=== PATIENT | male | born 1950 | race Caucasian/White ===

== ENCOUNTER 2024-03-05 14:15 | Emergency (ER) | payer OTHER ==
--- OUTSIDE RECORDS SUMMARY | 2024-03-05 14:18 | XMS REPORT | Continuity of Care Document ---
Author Name Unknown Address [address] [facility] [address] [place] [address] [facility] Address [address] [facility] [place] [address] Care Team Providers Care Clinical Dietician Name Role Phone ERICKSON_R Attending Clinician Unavailable Ruthann-Mbayo_A_AH Attending Clinician Unavailable ERICKSON_R Admitting Clinician Unavailable Ruthann-Mbayo_A_AH Admitting Clinician Unavailable Payers Payer Name Policy Type Policy Number Effective Date Expirati on Date Source [employer] (MEDICARE REPLACEMENT PPO) [id number] 2020 00:00:00 [facility] YONI CORONADO (MEDICARE REPLACEMENT/[employer] GE - HMO) [id number] 2019 00:00:00 Encounters Start Date/Time End Date/Time Encounter Type Admission Type Attending Clinicians Care Facility Care Department Encounter ID Source 2021-10-07 03:14:00 2021-10-07 03:14:00 Outpatient ERICKSON_R [facility] [id number] [facility] 2021-10-04 04:53:00 2021-10-04 04:53:00 Outpatient ERICKSON_R [facility] [id number] [facility] 2021-05-16 05:51:00 2021-05-16 05:51:00 Outpatient Ruthann-Mbayo _A_AH V[facility] VFP [id number] [facility] 2020-01-07 07:26:00 2020-01-07 07:26:00 Outpatient Ruthann-Mbayo _A_AH VFP VFP [id number] [facility] 2020-01-07 07:26:00 2020-01-07 07:26:00 Outpatient Ruthann-Kalie _A_AH VFP VFP [id number] [facility]
[2024-03-05] MEDS ORDERED: MORPHINE 4 MG/ML SYR ONE (14:32)
[2024-03-05] MEDS ORDERED: ONDANSETRON 4 MG/2 ML VIAL ONE (14:32)
[2024-03-05 14:50] LABS: Absolute Basophils 0.1 K/uL (0-0.5); Absolute Lymphocytes (CBC) 0.8 K/uL (0.7-4.9); Absolute Monocytes 0.5 K/uL (0.1-1.3); Absolute Neutrophil 6.7 K/uL (1.8-8.0); Basophils % 0.7 % (0-1.3); Eosinophils % 0.2 % (0-4.4); Hematocrit 46.4 % (39.6-49.0); Hemoglobin 15.5 g/dL (13.6-17.9); Lymphocytes % 10.4 % (15.3-44.8); MCH 29.4 pg (27.0-35.0); MCHC 33.3 g/dL (32.0-36.0); MCV 88.3 fL (80-100); MPV 8.6 fL (7.6-11.3); Monocytes % 5.9 % (3.3-12.3); Neutrophils % 82.8 % (41.7-73.7); Nucleated Red Blood Cells % 0.3 % (0-0); Platelets 205 thou/uL (152-406); RBC Red Blood Cell Count 5.26 M/uL (4.33-5.43); Red Cell Distribution Width 13.7 % (12.1-15.2)
--- NOTE | 2024-03-05 15:02 | RAD REPORT ---
EXAM DESCRIPTION: RAD - Hip Left 2 View - 03/05/2024 2:57 pm CLINICAL HISTORY: PAIN COMPARISON: No comparisons FINDINGS: No evidence of acute fracture, dislocation or AVN.
--- NOTE | 2024-03-05 15:19 | EDPHYS ---
Physician Documentation [facility] Name: Ben Munoz Age: 73 yrs Sex: Male : 1950 Arrival Date: 03/05/2024 Time: 14:15 Bed 18 Private MD: ED Physician Chuck Stoll HPI: 03/05 14:43 This 73 yrs old Male presents to ER via EMS with complaints of Leg Pain. kb 14:43 Pt is a 73 year old male who presents for left low back/upper buttock pain that started kb yesterday. States pain radiates down left leg and he has been getting muscle cramps. Spoke with Dr Pradhan and was prescribed gabapentin with no relief. Denies injury or trauma. States Dr Pradhan wanted him to get an x-ray because he has been on steroids for 2 years due to myasthenia gravis. . Historical: - Allergies: 14:24 Imuran; kc6 - PMHx: 14:24 myesthenia gravis; Hypertensive disorder; kc6 - Immunization history:: Adult Immunizations unknown. - Infectious Disease History:: Denies. - Social history:: Smoking status: Patient denies any tobacco usage or history of. ROS: 14:43 Constitutional: As per HPI kb Exam: 14:43 Constitutional: This is a well developed, well nourished patient who is awake, alert, kb and in no acute distress. Head/Face: Normocephalic, atraumatic. ENT: Moist Mucous membranes Cardiovascular: Regular rate Respiratory: Respirations even and unlabored. No increased work of breathing. Talking in full sentences Skin: Warm, dry with normal turgor. Normal color. MS/ Extremity: Pulses equal, no cyanosis. Neurovascular intact. Full, normal range of motion. Neuro: Awake and alert, GCS 15, oriented to person, place, time, and situation. Moves all extremities. Normal gait. 14:43 Back: pain, that is moderate, of the left low back, Vital Signs: 14:22 BP 176 / 103; Pulse 85; Resp 16 S; Pulse Ox 100% on R/A; Weight 95.71 kg (R); Height 5 kc6 ft. 8 in. (R); 14:40 BP 148 / 101; kc6 15:34 BP 142 / 94; Pulse 57; Resp 16 S; Pulse Ox 96% on R/A; kc6 14:22 Body Mass Index 32.08 (95.71 kg, 172.72 cm) kc6 MDM: 14:20 Patient medically screened. kb 14:43 Differential diagnosis: closed fracture, sciatica, abnormal electrolytes. Data kb reviewed: vital signs, nurses notes. Historians other than the Patient: EMS: [facility]. 15:18 Counseling: I had a detailed discussion with the patient and/or guardian regarding the kb historical points, exam findings, and any diagnostic results supporting the discharge/admit diagnosis, lab results, radiology results, the need for outpatient follow up, a neurologist, to return to the emergency department if symptoms worsen or persist or if there are any questions or concerns that arise at home. 15:20 ED course: At bedside to reassess patient. Patient remains awake, alert and at baseline kb mentation. Patient appears stable. Patient exhibits no visible signs of distress. Patient respirations even and unlabored. I discussed patient's diagnosis, differential diagnosis, expected course of illness, at home recommendations and strict return precautions. I advised patient to follow-up with PCP/Dr Pradhan in 2 to 3 days. I explained all diagnostic results with the patient and answered all questions that patient had regarding the most likely diagnosis. I emphasized the need for close outpatient follow-up and care from primary care provider/specialist and went through careful and detailed return precautions with patient. Patient expressed full understanding of such and agrees with plan for discharge today. Feel patient is stable and appropriate for discharge and ongoing management of condition at home at this time.. 03/05 14:20 Order name: CBC with Diff; Complete Time: 14:58 kb 03/05 14:20 Order name: Basic Metabolic Panel; Complete Time: 15:14 kb 03/05 14:36 Order name: Hip Left 2 View XRAY; Complete Time: 15:08 kb Administered Medications: 14:40 Drug: morphine IVP or IV 4 mg IVP once over 4 mins Route: IVP; Infused Over: 4 mins; kc6 Site: right antecubital; 15:35 Follow up: Response: No adverse reaction; Pain is decreased; RASS: Alert and Calm (0) kc6 14:40 Drug: Ondansetron IVP 4 mg IVP once; over 2 minutes Route: IVP; Site: right antecubital;6 15:35 Follow up: Response: No adverse reaction kc6 Disposition Summary: 03/05/24 15:19 Discharge Ordered Notes: Location: Home kb Condition: Stable kb Diagnosis - Sciatica, left side kb Followup: kb - With: Emergency Department - When: As needed - Reason: Worsening of condition Followup: kb - With: Private Physician - When: 2 - 3 days - Reason: Recheck today's complaints, Continuance of care, Re-evaluation by your physician Discharge Instructions: - Discharge Summary Sheet kb - Sciatica, Gwme-gr-Usal kb Forms: - Medication Reconciliation Form kb - Thank You Letter kb - Antibiotic Education kb - Prescription Opioid Use kb - Patient Portal Instructions kb - Leadership Thank You Letter kb Prescriptions: - Cyclobenzaprine 10 mg Oral tablet - take 1 tablet ORAL route every 8 hours As needed; 21 tablet; Refills: 0, kb Product Selection Permitted Signatures: Dispatcher [employer] EDMS Ada Gill, STOPPER SETTER-C LIZZETTE-Lucina Urena RN RN kc6 Corrections: (The following items were deleted from the chart) 14:21 14:21 CBC+H.LAB.BRZ ordered. EDMS EDMS 14:21 14:21 BASIC METABOLIC PANEL+C.LAB.BRZ ordered. EDMS EDMS
--- NOTE | 2024-03-05 15:19 | ER ---
Nurse's Notes [facility] Name: Ben Munoz Age: 73 yrs Sex: Male : 1950 Arrival Date: 03/05/2024 Time: 14:15 Bed 18 Private MD: Diagnosis: Sciatica, left side Presentation: 03/05 14:22 Chief complaint: EMS states: left hip pain x 1 day. Coronavirus screen: At this time, [facility] the client does not indicate any symptoms associated with coronavirus-19. Ebola Screen: No symptoms or risks identified at this time. Initial Sepsis Screen: Does the patient meet any 2 criteria? No. Patient's initial sepsis screen is negative. Does the patient have a suspected source of infection? No. Patient's initial sepsis screen is negative. Risk Assessment: Do you want to hurt yourself or someone else? Patient reports no desire to harm self or others. Onset of symptoms was March 05, 2024. 14:22 Method Of Arrival: EMS: [facility] [place] [id number] 14:22 Acuity: ASHA 3 kc6 Triage Assessment: 14:24 General: Appears in no apparent distress. uncomfortable, well groomed, well developed, kc6 Behavior is calm, cooperative, appropriate for age. Pain: Complains of pain in left leg. Neuro: Level of Consciousness is awake, alert, obeys commands, Oriented to person, place, time, situation, Appropriate for age. Respiratory: Airway is patent Trachea midline Respiratory effort is even, unlabored, Respiratory pattern is regular, symmetrical. GI: No signs and/or symptoms were reported involving the gastrointestinal system. : No signs and/or symptoms were reported regarding the genitourinary system. Derm: No signs and/or symptoms reported regarding the dermatologic system. Skin is intact, is healthy with good turgor, Skin is pink, warm \T\ dry. Historical: - Allergies: 14:24 Imuran; kc6 - PMHx: 14:24 myesthenia gravis; Hypertensive disorder; kc6 - Immunization history:: Adult Immunizations unknown. - Infectious Disease History:: Denies. - Social history:: Smoking status: Patient denies any tobacco usage or history of. Screenin:25 [facility] ED Fall Risk Assessment (Adult) History of falling in the last 3 months, kc6 including since admission No falls in past 3 months (0 pts) Confusion or Disorientation No (0 pts) Intoxicated or Sedated No (0 pts) Impaired Gait No (0 pts) Mobility Assist Device Used No (0 pt) Altered Elimination No (0 pt) Score/Fall Risk Level 0 - 2 = Low Risk. Abuse screen: Denies threats or abuse. Denies injuries from another. Nutritional screening: No deficits noted. Tuberculosis screening: No symptoms or risk factors identified. Assessment: 14:26 Reassessment: please see triage. kc6 15:26 Reassessment: Patient appears in no apparent distress at this time. No changes from kc previously documented assessment. Patient and/or family updated on plan of care and expected duration. Pain level reassessed. Patient is alert, oriented x 3, equal unlabored respirations, skin warm/dry/pink. Vital Signs: 14:22 BP 176 / 103; Pulse 85; Resp 16 S; Pulse Ox 100% on R/A; Weight 95.71 kg (R); Height 5 kc6 ft. 8 in. (R); 14:40 BP 148 / 101; kc6 15:34 BP 142 / 94; Pulse 57; Resp 16 S; Pulse Ox 96% on R/A; kc6 14:22 Body Mass Index 32.08 (95.71 kg, 172.72 cm) kc6 ED Course: 14:20 Patient arrived in ED. kb 14:20 Ada Gill FNP-C [facility]. kb 14:20 Chuck Stoll MD is Attending Physician. kb 14:22 Lucina Owens, RICHA is Primary Nurse. kc6 14:24 Triage completed. kc6 14:24 Arm band placed on. kc6 14:25 Patient has correct armband on for positive identification. Bed in low position. Call [facility] light in reach. Side rails up X2. Adult w/ patient. Client placed on continuous cardiac and pulse oximetry monitoring. NIBP monitoring applied. 14:25 Maintain EMS IV. Dressing intact. Good blood return noted. Site clean \T\ dry. Gauge \T\ caroline 6 site: 18G RAC. 14:40 Basic Metabolic Panel Sent. kc6 14:40 CBC with Diff Sent. kc6 14:59 Hip Left 2 View XRAY In Process Unspecified. EDMS 15:35 No provider procedures requiring assistance completed. IV discontinued, intact, kc6 bleeding controlled, No redness/swelling at site. Pressure dressing applied. Administered Medications: 14:40 Drug: morphine IVP or IV 4 mg IVP once over 4 mins Route: IVP; Infused Over: 4 mins; kc6 Site: right antecubital; 15:35 Follow up: Response: No adverse reaction; Pain is decreased; RASS: Alert and Calm (0) kc6 14:40 Drug: Ondansetron IVP 4 mg IVP once; over 2 minutes Route: IVP; Site: right antecubital;kc6 15:35 Follow up: Response: No adverse reaction kc6 Medication: 15:35 VIS not applicable for this client. kc6 Outcome: 15:19 Discharge ordered by . dee dee 15:35 Discharged to home via wheelchair, with significant other, kc6 15:35 Condition: improved 15:35 Discharge instructions given to patient, significant other, Instructed on discharge instructions, follow up and referral plans. medication usage, Demonstrated understanding of instructions, follow-up care, medications, Prescriptions given X 1, 15:35 Patient left the ED. kc6 Signatures: Dispatcher [employer] EDAda De La Cruz, ASSISTANT INVENTORY MANAGER-C ASSISTANT INVENTORY MANAGER-Lucina Urena, RN RN kc6
[2024-03-06 02:20] VITALS: BP 142/94; O2SAT 96
== END 2024-03-05 15:35 | disposition home or self-care (01) ==
LOC: ER 14:15
DX: M54.32 Sciatica, left side (principal); Z88.8 Allergy status to other drugs, medicaments and biological substances
CPT/HCPCS: 85025; 80048; 36415; 73502; J2405